=== PATIENT | male | born 1970 | race Caucasian/White ===

== ENCOUNTER 2019-01-26 10:10 | Emergency (ER) | payer BC ==
[~2019-01-26] VITALS: Ht 188 cm; Wt 81.8 kg
[~2019-01-26 10:10] MED LIST: BACDS PO; HYDR1TAB PO; IBUP-812 PO
[2019-01-26 11:30] VITALS: BP 141/84
[2019-01-26] MEDS ORDERED: proparacaine 0.5% ophthalmic drops 15ml EACHEYE ONE (11:30)
--- NOTE | 2019-01-26 11:31 | NUR ---
PT STATES NO PAIN, JUST A LITTLE UNCOMFORTABLE IN LEFT EYE
[2019-01-26] MEDS ORDERED: ERYT1OIN6 EACHEYE (11:58)
== END 2019-01-26 12:22 | disposition home or self-care (01) ==
LOC: ER 10:11
DX: S05.02XA Injury of conjunctiva and corneal abrasion without foreign body, left eye, initial encounter (principal); Z79.2 Long term (current) use of antibiotics; Z79.899 Other long term (current) drug therapy; W22.8XXA Striking against or struck by other objects, initial encounter; Y93.89 Activity, other specified; Y92.69 Other specified industrial and construction area as the place of occurrence of the external cause; Y99.8 Other external cause status
CPT/HCPCS: 99283

== ENCOUNTER 2021-02-09 10:52 | Emergency (ER) | payer BC ==
[~2021-02-09] VITALS: Ht 188 cm; Wt 82.7 kg
[~2021-02-09 10:52] MED LIST changes: +SULF1TAB45 PO
[2021-02-09] MEDS ORDERED: IBUP-1984 PO (11:42)
[2021-02-09] MEDS ORDERED: CEPH250T PO (12:38)
[2021-02-09 12:54] VITALS: BP 120/78
== END 2021-02-09 12:55 | disposition home or self-care (01) ==
LOC: ER 10:52
DX: M70.21 Olecranon bursitis, right elbow (principal); Z79.899 Other long term (current) drug therapy
CPT/HCPCS: 93971; 99284